=== PATIENT | female | born 1955 | race African-American/Black ===

== ENCOUNTER 2017-06-18 01:09 | Emergency (ER) | payer OTHER ==
[2017-06-18 02:13] LABS: #Basophils 0.1 thou/uL (0.0-0.2); #Eosinphils 0.1 thou/uL (0.0-0.7); #Lymphocytes 2.5 thou/uL (1.20-3.40); #Monocytes 0.6 thou/uL (0.11-0.59); #Neutrophils 3.4 thou/uL (1.40-6.50); %Eosinophils 1.6 % (0.0-10.0); %Lymphocytes 37.5 % (21.0-51.0); %Monocytes 8.5 % (0.0-10.0); %Neutrophils 51.3 % (42.0-75.0); Hemoglobin 11.9 g/dL (12.0-16.0); Mean Corpuscular HGB CONC 35.5 g/dL (32.0-36.0); Mean Corpuscular Hemoglobin 32.5 pg (27.0-31.0); Mean Corpuscular Volume 91.4 fl (81.0-99.0); Mean Platelet Volume 7.8 fL (7.4-10.4); Platelet Count 290 thou/uL (130-400); RBC Distribution Width 13.1 % (11.5-14.5); Red Blood Cell (RBC) Count 3.65 mill/uL (4.20-5.40); White Blood Cell (WBC) Count 6.6 thou/uL (4.8-10.8)
[2017-06-18 02:16] LABS: PTT 25.3 SEC (22.9-36.1); Prothrombin Time 12.8 SEC (12.0-14.7)
[2017-06-18 02:25] LABS: ALT (SGPT) 16 U/L (8-55); AST (SGOT) 14 U/L (5-34); Albumin 4.1 g/dL (3.4-4.8); Alkaline Phosphatase 76 U/L (40-150); Anion Gap 17 mmol/L (10-20); BUN (Urea Nitrogen) 23 mg/dL (9.8-20.1); Bilirubin, Total 0.3 mg/dL (0.2-1.2); Calc. Creatinine Clearance 0 mL/min (70-130); Calcium 8.9 mg/dL (7.8-10.44); Carbon Dioxide 21 mmol/L (23-31); Chloride 109 mmol/L (98-107); Estimated GFR-MDRD 57; Globulin 3.1 g/dL (2.4-3.5); Glucose 185 mg/dL (80-115); Potassium 3.8 mmol/L (3.5-5.1); Protein, Total 7.2 g/dL (6.0-8.3); Sodium 143 mmol/L (136-145)
[2017-06-18 02:27] LABS: CKMB 1.7 ng/mL (0-6.6); Troponin I 0.029 ng/mL (< 0.028)
[2017-06-18] MEDS ORDERED: Metoprolol Tartrate 25 MG TAB PO SCH (03:15)
--- NOTE | 2017-06-18 07:19 | RAD ---
PORTABLE CHEST: Date: 06/18/17 An AP portable film at 1356 hours shows a normal sized heart and clear lungs. No infiltrate or effusi on seen. There is no vascular congestion or edema. The lungs are clear. The trachea is midline. IMPRESSION: No acute thoracic finding. POS: HOME
== END 2017-06-18 03:21 | disposition home or self-care (01) ==
LOC: BURERS 01:09
DX: M54.2 Cervicalgia (principal); R07.89 Other chest pain; I10 Essential (primary) hypertension; E11.9 Type 2 diabetes mellitus without complications
CPT/HCPCS: 71045; 80053; 82553; 84484; 85025; 85610; 85730; 93005; 94760

== ENCOUNTER 2018-11-27 17:58 | Emergency (ER) | payer OTHER ==
--- NOTE | 2018-11-27 21:55 | RAD ---
RIGHT KNEE FOUR VIEWS: 11/27/18 No acute fracture was seen. There is no joint effusion or joint space narrowing. Only the smallest of osteophytes are apparent. IMPRESSION: No acute findings. POS: HOME
--- NOTE | 2018-11-27 21:56 | RAD ---
RIGHT HIP TWO VIEWS: 11/27/18 No fracture, dislocation, or joint space narrowing was seen. The articular surfaces are smooth and th e adjacent pubic ring appears intact. IMPRESSION: No acute finding. POS: HOME
== END 2018-11-27 18:47 | disposition home or self-care (01) ==
LOC: BURERS 17:58
DX: S80.01XA Contusion of right knee, initial encounter (principal); M25.551 Pain in right hip; I10 Essential (primary) hypertension; E11.9 Type 2 diabetes mellitus without complications; Z79.899 Other long term (current) drug therapy; Z79.84 Long term (current) use of oral hypoglycemic drugs; W01.0XXA Fall on same level from slipping, tripping and stumbling without subsequent striking against object, initial encounter

== ENCOUNTER 2019-07-13 13:53 | Outpatient (CLI) | payer OTHER ==
--- NOTE | 2019-07-13 17:14 | RAD ---
LEFT FOOT THREE VIEWS: 07/13/19 No fracture or periosteal reaction was seen. All bones appear intact. A small calcaneal spur is prese nt. The distal end of the proximal phalanx of the fifth digit is rather deformed with extra space in the PIP joint. This is obviously longstanding. IMPRESSION: No acute findings. POS: HOME
== END 2019-07-13 13:54 | disposition home or self-care (01) ==
LOC: BURRAD 13:53
PROVIDERS: ATTEND Family Medicine
DX: M79.672 Pain in left foot (principal)

== ENCOUNTER 2022-10-15 18:28 | Emergency (ER) | payer MEDICARE, OTHER | END 2022-10-15 18:55 | disposition home or self-care (01) | LOC: BURERS 18:28 | DX: M10.9 Gout, unspecified (principal); I10 Essential (primary) hypertension; E11.9 Type 2 diabetes mellitus without complications; Z79.84 Long term (current) use of oral hypoglycemic drugs | CPT/HCPCS: 99283 ==